=== PATIENT | male | born 1970 | race African-American/Black ===

== ENCOUNTER 2024-08-26 18:37 | Emergency (ER) | payer OTHER ==
[~2024-08-26] VITALS: Ht 177.8 cm; Wt 149.7 kg
[2024-08-26 18:47] VITALS: BP 149/94; TEMP 98.2; O2SAT 97
== END 2024-08-26 22:25 | disposition left against medical advice (07) ==
LOC: ER 18:41
DX: I10 Essential (primary) hypertension (principal); Z53.21 Procedure and treatment not carried out due to patient leaving prior to being seen by health care provider